=== PATIENT | male | born 1970 | race Caucasian/White ===

== ENCOUNTER 2020-09-08 08:05 | Inpatient (IN) | payer OTHER ==
[~2020-09-08] VITALS: Ht 182.9 cm; Wt 68.0 kg
[~2020-09-08 08:05] MED LIST: AUGMENTIN 875-1 EACH PO; BENZONATATE200 MG PO; CALCIUM 600 +1 EAC1 PO; CHANTIX1 MG PO; FIORICET-COD 51 EACH PO; NABUMETONE750 MG PO; NORCO 5-325 TA1 EACH PO; PLAVIX75 MG PO; POTASSIUM CHLO20 ME1 PO; ROBAXIN-750750 MG PO; SYNTHROID112 MCG PO; TOPROL XL50 MG PO; TRAMADOL HCL50 MG PO; TRIAMTERENE-HC1 EAC1 PO; VITAMIN D2000 UNIT PO; ZANAFLEX4 MG PO
[2020-09-08] MEDS ORDERED: METOPROLOL SUCC50 MG PO (08:19)
[2020-09-08] MEDS ORDERED: AMITRIPTYLINE100 MG PO (08:19)
[2020-09-08] MEDS ORDERED: CLOPIDOGREL75 MG PO (08:20)
[2020-09-08] MEDS ORDERED: SYNTHROID88 MCG PO (09:40)
[2020-09-08] MEDS ORDERED: SYNTHROID100 MCG PO (09:41)
[2020-09-08] MEDS ORDERED: AMLODIPINE BESYL5 MG PO (09:42)
--- NOTE | 2020-09-08 11:53 | NUR ---
PT HERE TO ROOM 127 FROM ER VIA GURNEY, IS AT THE BEDSIDE. PT ONLY ABLE TO ROLL FROM GURNEY TO BED DUE TO BACK PAIN. PT IS ALERT AND ORIENTED X4, COOPERATIVE. PT C/O 9/10 PAIN IN LOW BACK AND NECK. PT DENIES NAUSEA AND SOB. PT AGREABLE TO NICOTINE PATCH, PLACED ON RT SHOULDER. PT REFUSES LUNCH AT THIS TIME, TAKES A FEW SIPS OF WATER AND APPLE JUICE. PT ABLE TO USE CALL LIGHT, DENIES NEED TO VOID.
--- NOTE | 2020-09-08 12:14 | NUR ---
NOTIFIED BY LAB FOR CRITICAL VALUE, NA 112. DR. PIZARRO NOTIFIED, NO NEW ORDERS.
--- NOTE | 2020-09-08 12:38 | NUR ---
IV SITE IS INTACT, NO REDNESS OR SWELLING NOTED, PT DEINES PAIN WITH FLUSH. PT IS ALERT AND ORIENTED X4, COOPERATIVE.
--- NOTE | 2020-09-08 15:00 | NUR ---
NAPPING, NO DISTRESS NOTED. IN ROOM.
--- NOTE | 2020-09-08 16:10 | NUR ---
ASSESSMENT DONE. TALKED WITH PATIENT ABOUT REASONS WHY HE HAS LOW SODIUM. PATIENT IS CALM AT THIS TIME. COOPERATIVE,. NO S/S OF ETOH WITHDRAWAL.
--- NOTE | 2020-09-08 17:19 | NUR ---
LAB REPORTED CRITICAL VALUE OF NA 114. DR. PIZARRO NOTIFIED BY PHONE, NO NEW ORDERS AT THIS TIME.
--- NOTE | 2020-09-08 17:41 | NUR ---
SITTING UP IN BED FOER DINNER. IVF CONTINUE TO INFUSE AT 50 ML/HR.
--- NOTE | 2020-09-08 18:15 | NUR ---
C/O INCREASED PAIN, FENTANYL 50 MCG IV GIVEN. TOOK ONLY FEW BITES OF SOUP FOR DINNER.
--- NOTE | 2020-09-08 19:01 | NUR ---
MORE RESTFUL SINCE PAIN MEDICATION GIVEN. IS SITTING UP IN BED WATCHING TV. REMAINS IN ROOM. REPORT TO NEST SHIFT.
--- NOTE | 2020-09-08 19:04 | EKG ---
[facility] [address] [facility] [place], [place] [address] Signed Normal sinus rhythm Biatrial enlargement Prolonged QT Abnormal ECG No previous ECGs available Confirmed by LIZZY PIZARRO DO ([id number]) on 09/08/2020 7:04:14 PM Electronically Signed By: LIZZY PIZARRO DO 09/08/20 1904 PATIENT NAME: TYRESE PIMENTEL Electrocardiogram DATE OF : 68 PHYSICIAN: LIZZY PIZARRO DO REPORT #: [id number] REPORT IS CONFIDENTIAL AND NOT TO BE RELEASED WITHOUT AUTHORIZATION
--- NOTE | 2020-09-08 20:00 | NUR ---
PATIENT RESTING IN BED. REPORTS BEING SORE. DISCUSSED PRN TIME FRAME, PATIENT VERBALIZED UNDERSTANDING. NO NEEDS AT THIS TIME. CALL LIGHT IN REACH.
--- NOTE | 2020-09-08 20:30 | NUR ---
DISCUSSED LAB FINDINDS WITH . INCREASED RATE TO 75 ML/HR FOR 3% SALINE.
--- NOTE | 2020-09-08 20:45 | NUR ---
PATIENT PROVIDED WITH PRN OXY AND MUSCLE RELAXER FOR PAIN 01/05. PAIN IS ACROSS THE BACK AND UPPER ABD. PATIENT IS AAOX4. IV SITE WNL, INCREASED RATE TO 75 ML/HR PER ORDERS. PATIENT HAS A CONGESTED COUGH AND SOME BLOODY SPUTUM. NO SIGNS OF NOSE BLEED AT THIS TIME. PRN ZOFRAN PROVIDED FOR MILD NAUSEA. PATIENT ABLE TO EAT A JELLO AND ENCOURAGED TO DRINK MORE WATER. LUNG SOUNDS ARE COARSE THROUGHOUT. PATIENT DENIED NEED TO VOID. CALL LIGHT IN REACH.
--- NOTE | 2020-09-08 23:32 | NUR ---
PATIENT APPEARS TO BE SLEEPING SOUNDLY. VS STABLE. IV SITE WNL. CALL LIGHT IN REACH.
--- NOTE | 2020-09-09 00:57 | NUR ---
PATIENT WOKE. HAVING SOME HARSH COUGHING THAT SOUNDS CONGESTED. PATIENT REPORTS THIS NORMAL FOR HIM. ASSISTED UP TO THE BEDSIDE TO USE THE URNAL. PATIENT TOLERATED OKAY, BUT IS WEAK. PAIN 8/10. PRN OXY PROVIDED. PATIENT ASSISTED BACK INTO BED. FRESH ICE WATER PROVIDED. PATIENT REPORTS BEING COMFORTABLE. BREATHING IS MILDLY LABORED, O2 SATS GREATER THAN 95% BUT WHEEZING HEARD.
--- NOTE | 2020-09-09 03:12 | NUR ---
CONT TO C/O PAIN. GIVEN 4MG ZANAFLEX FOR MUSCLE TIGHTNESS.
--- NOTE | 2020-09-09 05:13 | NUR ---
PATIENT DESAT TO 70'S WHILE SLEEPING. BREATHING IS SHALLOW AND AUDIBLY COARSE. 2L NC PLACED ON PATIENT.
--- NOTE | 2020-09-09 06:42 | NUR ---
FLUIDS PLACED IN STAND BY AT THIS TIME
--- NOTE | 2020-09-09 07:30 | NUR ---
REPORT RECIEVED. PATIENT IS ASLEEP IN BED. NO DISTRESS NOTED.
--- NOTE | 2020-09-09 08:15 | NUR ---
IVF CHANGED TO D5W AT 100 ML/HR FOR 400 ML. ROUTINE MEDICATIONS GIVEN.
--- NOTE | 2020-09-09 08:30 | NUR ---
ASSESSMENT DONE. LUNGS ARE WITH VERY COURSE BREATH SOUNDS THROUGHOUT, DENIES SHORTNESS OF BREATH. O2 TO OFF SATS 100%. OXYCODONE 10 MG PO GIVEN FOR PAIN IN BACK AND RIBS, ROUTINE TYLENOL GIVEN. SITTING UP IN BED.
--- NOTE | 2020-09-09 09:30 | NUR ---
TOOK BREAKFAST FAIR. DENIES NAUSEA. HAS HARSH COUGH.
--- NOTE | 2020-09-09 09:50 | NUR ---
PHYS THERAPY HERE TO SEE PATIENT, SEE PT NOTE. WITH ACTIVITY HR TO 130.
--- NOTE | 2020-09-09 10:27 | NUR ---
RESTING IN BED. HR 112, DENIES DIZZINESS.
--- NOTE | 2020-09-09 12:20 | NUR ---
DR. PIZARRO HERE TO SEE PATIENT.
--- NOTE | 2020-09-09 13:30 | NUR ---
transferred to chair.
--- NOTE | 2020-09-09 14:10 | NUR ---
BACK TOP BED.
--- NOTE | 2020-09-09 14:40 | NUR ---
OXYCODONE 10 MG PO AND TYLENOL 1000 MG AND MUSCEL RELAXANT GIVEN FOR RIB PAIN, RATES 02/05.
--- NOTE | 2020-09-09 15:45 | NUR ---
MONITOR DC'D. TO BE TRANSFERRED TO MED-SURG SOON.
--- NOTE | 2020-09-09 16:00 | NUR ---
report to med-surg.
--- NOTE | 2020-09-09 16:04 | NUR ---
TO MED-SURG VIA BED.
--- NOTE | 2020-09-09 16:17 | NUR ---
PT ARRIVED FROM CCU. PT RESTING IN BED. VSS. PT DENIES NEEDS AT THIS TIME.
--- NOTE | 2020-09-09 17:43 | NUR ---
PT RESTING IN BED. ASSISTED TO ORDER DINNER. HAT PLACED IN BATHROOM AND WALKER AT BEDSIDE, DISCUSSED TO CALL TO AMBULATE TO BATHROOM FOR SAFETY.
--- NOTE | 2020-09-09 19:10 | NUR ---
REPORT RECEIVED FROM DAY SHIFT RN. PT LYING IN BED ALERT AND ORIENTED. DENIES NEEDS AT THIS TIME. WHITE BOARD UPDATED. CALL LIGHT IN REACH.
--- NOTE | 2020-09-09 20:54 | NUR ---
PT UP TO BR WITH SBA AND FWW. PT TREMULOUS. GAIT UNSTEADY AT TIMES. VOID 1000 ML CONCENTRATED URINE. BACK TO BED, CATINA WELL. ASSESSMENT COMPLETE. SCHEDULED PAIN MEDS ADMINISTERED. PT DENIES NAUSEA. PT DENIES QUESTIONS OR CONCERNS AT THIS TIME. CALL LIGHT IN REACH.
--- NOTE | 2020-09-09 23:41 | NUR ---
IN TO ROUND ON PT. PT SITTING UP IN BED WATCHING TV. REPORTS PAIN IS TOLERABLE AT THIS TIME. DENIES NEEDS. CALL LIGHT IN REACH.
--- NOTE | 2020-09-10 01:11 | NUR ---
PT RESTING IN BED WITH EYES CLOSED. HOB ELEVATED. RESPIRATIONS EVEN AND UNLABORED.
--- NOTE | 2020-09-10 03:40 | NUR ---
ROUNDING ON PT. PT EYES OPEN WHEN OPENING THE DOOR. PT REPORTS RIGHT RIB PAIN IS TOLERABLE. NO NEEDS AT THIS TIME. CALL LIGHT IN REACH.
--- NOTE | 2020-09-10 05:30 | NUR ---
IN TO DO VS AND I&O. PT IS COOPERATIVE BUT APPEARS CONFUSED AND IS MINIMALLY VERBAL. UP TO BR WITH SBA AND FWW. GAIT UNSTEADY. PT TREMULOUS BUT NOT MORE SO THAN LAST EVENING. PT UNABLE TO VOID. BACK TO BED. STATES "I FEEL LIKE I'M LOSING MY DAMN MIND". SITTING AT BEDSIDE. ABLE TO DRINK FROM CUP. MOVEMENTS JERKY. PT UNABLE TO ANSWER ORIENTATION QUESTIONS, NON-VERBAL AT THIS TIME. NOTED TO HAVE A BLANK GAZE. COURT MANAGER RN NOTIFIED. BLOOD SUGAR CHECK 112. LAB CALLED TO ROOM FOR LABS. DR. PIZARRO NOTIFIED OF MENTAL STATUS CHANGES. 0600: DR. PIZARRO TO FLOOR IN ROOM TO ASSESS. NEW ORDERS RECEIVED. PT UNABLE TO STATE WIFES NAME. UNAWARE OF SURROUNDINGS. BLANK GAZE. ABLE TO FOLLOW WITH EYES BUT NO VERBAL RESPONSE. ROTARY FURNACE TENDER EQUAL. APPROX FIVE MIN LATER PT ABLE TO FOLLOW SIMPLE COMMANDS. 0625: PT RUBBING HEAD AND EARS. PT ABLE TO RESPOND "THEY JUST STARTED GOING". DENIES HEADACHE BUT SAID HE FEELS CONFUSED AND HAS RINGING IN HIS EARS. PT ABLE TO STATE WIFES NAME AND BECAME MORE VERBALLY RESPONSIVE. PT DOES NOT SEEM TO BE AT BASELINE COMPARED TO LAST EVENING. DENIES CHEST PAIN BUT GRABS AT RIGHT SIDE. HEAD CT ORDERED. COURT MANAGER NOTIFIED IMAGING. MEN'S LEATHER DRESS BELT MAKER ONE ON ONE WITH PT. THIS RN AT NURSES STATION WITH PT IN VIEW. 0715: PT OFF FLOOR TO CT.
--- NOTE | 2020-09-10 06:30 | NUR ---
MESSAGE LEFT FOR PT TO CONTACT MEDICAL FLOOR.
--- NOTE | 2020-09-10 06:49 | NUR ---
NEW TELEPHONE ORDERS RECEIVED FROM DR. PIZARRO. VERIFIED WITH READ BACK METHOD. PT IN BED, CONTINUES TO RUB HEAD AND EARS. GRABBING RIGHT RIB AREA. DENIES CP OR SOB. IVF INFUSING ORDERED. BED ALARM FOR SAFETY. PT IN VIEW OR THIS RN AND ACCOUNTING MACHINE SERVICER.
--- NOTE | 2020-09-10 07:38 | NUR ---
this rn recieved report from sanjuanita petty. pt appears "out of it" during neuro assessment this rn completed pt not able to state what kind of building he is im, pt not able to state the date without looking at the white board to cheat for the answer. pt also able to perform all movements wnl but following directions for the nih was more literal movements- instead of pt pulling his toes up against this rns hands pt pulled his legs up to his chest. this rn will continue to monitor
--- NOTE | 2020-09-10 07:46 | NUR ---
IVF COMPLETE, SL AT THIS TIME. PT STATES HE IS COLD. WARM BLANKET PROVIDED. PT CONTINUES TO RUB EARS/HEAD AND C/O RINGING IN HIS EARS. REPORTED TO DAY SHIFT RN. BED ALARM FOR SAFETY.
--- NOTE | 2020-09-10 09:11 | NUR ---
this rn in pts room to check on pt. catalyst supervisor's darshan, alexia, and mehgan in room at this time with . pt out of bed and has phone and glasses case in his hand. this rn had a catalyst supervisor call security. this rn over rode 2mg of ativan and gave them around this time per verbal order of .
--- NOTE | 2020-09-10 10:11 | NUR ---
PATIENT IN BED RESTING WITH EYES CLOSED. VISITOR IN ROOM. SEIZURE PADS IN PLACE. VITALS CHARTED. CALL LIGHT IN REACH. BED ALARM ON. NO FURTHER NEEDS AT THIS TIME.
--- NOTE | 2020-09-10 10:15 | NUR ---
THIS RN GAVE REPORT TO FRANSISCA HEATH IN CCU WHERE PT IS TO BE TRANSFERRED TO [facility]
--- NOTE | 2020-09-10 10:30 | NUR ---
Patient arrives to unit via hospital bed, sleeping and somnolent in bed. Patient does not initially arouse to verbal stimuli but mumbles and moves with physical stimuli. Daughter in room at bedside. Assessment initiated, vital signs taken. school lunch monitor in place. This RN to remain in room to continue assessment.
--- NOTE | 2020-09-10 10:45 | NUR ---
Patient sits up in bed, mumbling and stating "I need to get out of bed." Patient has strong and equal muscle strength, pushing himself out of bed. Nursing staff in room at bedside, keeping patient in bed. Patient begins yelling "Quit quit" and swatting at staff members. printing worker supervisor called to respond, as well as security. Called Dr. Arias and orders acknowledged to administer ativan (see MAR). Security in room at bedside. Dr Arias responds to patient's bedside to evaluate. Further orders acknowledged to administer additional ativan (see MAR). Patient assisted back to bed with security assistance. After several minutes, patient begins to become less agitated and closes eyes. Patient now sleeping in bed. Patient begins coughing, suction used for sputum, which is cardona in color. *Prior to ativan administration, patient stated "I have to pee." Patient assisted to a standing position with security and nursing staff assist with urinal in place. Patient unable to void, however does have a large unmeasured incontinent void once back in bed.
--- NOTE | 2020-09-10 11:16 | NUR ---
MED REC COMPLETE
--- NOTE | 2020-09-10 11:22 | NUR ---
Patient sleeping in bed, respirations even and unlabored. Slight snoring heard. Daughter in room at bedside. HR in the 100's, SpO2 of 97% on RA. Bed alarm in place.
--- NOTE | 2020-09-10 11:30 | NUR ---
PATIENT SLEEPING SOUNDLY. WILL NOT AWAKEN HAS BEEN CONFUSED AND SEDATED TODAY. CM WILL CONTINUE TO FOLLOW WHEN ABLE.
--- NOTE | 2020-09-10 14:10 | NUR ---
THIS RN IN TO ASSESS PT AND TAKE VITALS. PT INITIALLY SLEEPING IN BED, FAMILY AT BEDSIDE. WHILE ASSESSING PT PT BECAME INCREASINGLY AGITATED AND KEPT ATTEMPTING TO GET OUT OF BED. PT WAS NO FOLLOWING COMMANDS AND 2MG ATIVAN WAS ADMINISTERED VIA IV BY KUMAR CORRIGAN. ASSESSMENT WAS THEN COMPLETE. PT BECAME AGITATED ONLY MINUTES LATER AGAIN IGNORING COMMANDS AND TRYING TO GET OUT OF BED DESPITE US REQUESTING HIM NOT TO. THIS RN ADMINISTERED ANOTHER 2MG IV ATIVAN. PT THEN CALMED DOWN AND REMAINED CALM. PT WAS INCONTINENT OF URINE, BED CHANGE DONE, PERICARE DONE, NEW ATTENDS IN PLACE. PT NOW LAYING IN BED SLEEPING, FAMILY AT BEDSIDE, NO FURTHER NEEDS REPORTED OR ASSESSED AT THIS TIME. BED IN LOWEST POSITION, BED ALARM ON, WILL CONTINUE PLAN OF CARE.
--- NOTE | 2020-09-10 15:15 | NUR ---
THIS RN IN TO CHECK ON PT. PT LAYING IN BED SLEEPING AT THIS TIME. RESPIRATIONS EVEN AND UNLABORED, PT IN NO APPARENT DISTRESS AT THIS TIME. NO FURTHER NEEDS REPORTED AT THIS TIME, WILL CONTINUE PLAN OF CARE. BED IN LOWEST POSITION, BED ALARM ON.
--- NOTE | 2020-09-10 15:45 | NUR ---
THIS RN IN TO ASSESS PT AND FIX SPO2 MONITOR FOR A BETTER READ. PT ALSO PUT ON 2L O2 AT THIS TIME DUE TO PREVIOUS READS IN THE UPPER 80%. PT INITIALLY SLEEPING BUT BECAME MORE AGITATED WHILE PUTTING NEW SPO2 PROBE ON AND ATTEMPTED TO GET OUT OF BED AGAIN AND WAS NOT LISTENING TO COMMANDS. 2MG PRN IV ATIVAN ADMINISTERED AT THIS TIME. PT NOW LAYING IN BED SLEEPING, SPO2 AT 99%, 2L O2 VIA NC AT THIS TIME. NO FURTHER NEEDS REPORTED BY FAMILY, PT IN NO APPARENT DISTRESS, BED IN LOWEST POSITION, BED ALARM ON, WILL CONTINUE PLAN OF CARE.
--- NOTE | 2020-09-10 16:10 | NUR ---
THIS RN IN TO START ANOTHER IV ON PT. PT SLEEPING IN BED AND IN NO APPARENT DISTRESS, 2L O2 NC ON PT, SPO2 AT 99%. NEW IV PLACED IN R WRIST PER PROTOCOL. IV FLUSHES WELL AND DRAWS BLOOD, LAB IN TO DRAW BLOOD AT THIS TIME, SAMPLE GIVEN FROM IV. PT REMAINS ASLEEP AT THIS TIME, BREATHING EVEN AND UNLABORED. NO FURTHER NEEDS ASSESSED AT THIS TIME, WILL CONTINUE PLAN OF CARE. BED IN LOWEST POSITION, BED ALARM ON, FAMILY IN ROOM WITH PATIENT.
--- NOTE | 2020-09-10 16:49 | NUR ---
THIS RN IN TO ASSESS PT. PT LAYING IN BED SLEEPING, RESPIRATIONS EVEN AND AT 22 PER MINUTE. PT IN NO APPARENT DISTRESS AT THIS TIME AND WAS LEFT UNDISTURBED, PT STILL ON 2L O2 NC, SPO2 AT 100%. WILL CONTINUE PLAN OF CARE. IN ROOM SLEEPING, BED IN LOWEST POSITION, BED ALARM UP, SEIZURE PADS IN PLACE.
--- NOTE | 2020-09-10 18:10 | NUR ---
DR. PIZARRO UPDATED ON PT, NEW ORDERS GIVEN TO START MAINTENANCE IVF, LR AT 100 mls/hr. THIS RN IN TO START IVF, PT ADMINISTERED 2MG OF ATIVAN PRIOR TO SUCTIONING SECRETIONS AND STARTING IVF PT. CAN GO FROM BEING ASLEEP TO GETTING OUT OF BED QUICKLY WHEN AGITATED/DISTURBED. IVF STARTED, SECRETIONS SUCTIONED, PT STILL ON 2L O2 NC, SPO2 AT 99%. NO FURTHER NEEDS ASSESSED AT THIS TIME, BED IN LOWEST POSITION, BED ALARM ON, WILL CONTINUE PLAN OF CARE.
--- NOTE | 2020-09-10 19:11 | NUR ---
THIS RN IN TO CHECK ON PT. PT SLEEPING IN BED ON 2L O2, RESPIRATIONS EVEN AND UNLABORED. PT CHANGED DUE TO URINARY INCONTINENCE, PERICARE DONE AT THIS TIME, NEW ATTENDS IN PLACE. AFTER CHANGE PT BECAME MORE AWAKE, RESTLESS, TRIED TO GET OUT OF BED. PT WAS NOT FOLLOWING DIRECTIONS AND KEPT TRYING TO GET OUT OF BED, 2MG PRN IV ATIVAN WAS ADMINISTERED. PT WAS RESTLESS FOR A PERIOD BUT EVENTUALLY BECAME CALM AND WENT BACK TO SLEEP. NO FURTHER NEEDS ASSESSED AT THIS TIME, PT NOW SLEEPING IN BED, IV LR INFUSING AT ORDERED RATE, 2L O2 NC IN PLACE SPO2 AT 99%, BED IN LOWEST POSITION, BED ALARM ON, WILL CONTINUE PLAN OF CARE.
--- NOTE | 2020-09-10 19:47 | NUR ---
REPORT RECEIVED FROM AFSHIN HEATH. PT CURRENTLY AWAKE, TRYING TO CLIMB OUT OF BED SETTING OFF BED ALARM. HELPED HIM BACK TO BED AND HE IS STILL MOVING LEGS OUT OF BED WELL PLAYING WITH IV LINE AND MONITOR CORDS. WILL GIVE PRN ATIVAN, BED ALARM ON.
--- NOTE | 2020-09-10 20:16 | NUR ---
PT CONSTANTLY ATTEMPTING TO GET OUT OF BED, STATES HE NEEDS TO HAVE BOWEL MOVEMENT, ATTEMPTED TO HELP HIM UP TO BSC BUT PT REFUSING TO USE BSC WANTS TO WALK INTO BR, AT THIS TIME PT IS NOT ABLE TO STAND UP OR WALK STEADILY, EXPLAINED TO PT NOT SAFE AT THIS TIME BUT PT CONT TO REFUSE BSC. AFTER APPROX 30 MINUTES OF 3 STAFF AT BEDSIDE PT EVENTUALLY LIES BACK TO BED, ATTENDS IN PLACE AND NO BOWEL MOVEMENT BUT ATTENDS IN PLACE. 2MG IV ATIVAN GIVEN AND BED ALARM ON. STAFF REMAIN IN ROOM WITH PT.
--- NOTE | 2020-09-10 20:37 | NUR ---
PT AGAIN TRYING TO GET OUT OF BED, NO REDIRECTABLE. 2MG IV ATIVAN GIVEN.
--- NOTE | 2020-09-10 21:02 | NUR ---
IVF SWITCHED TO 1/2NS PER DR PIZARRO ORDER. PT CURRENTLY RESTING WITH EYES CLOSED, RESTING HR DOWN FROM 105 TO 95. STAFF AT BEDSIDE.
--- NOTE | 2020-09-10 23:06 | NUR ---
PT BECAME RESTLESS AND AGITATED AGAIN, CLIMBING OUT OF BED, STAFF ASSITED PT TO VOID 20ML INTO URINAL, ALSO INC INTO URINAL. PT INSISTING ON BOWEL MOVEMENT, ASSISTED ONTO BSC WITH 2PA, PT NOT FOLLOWING COMMANDS, SWINGING AT STAFF, AND TRYING TO WALK OFF. FINALLY GOT HIM ONTO COMMODE, WHERE HE SAT FOR APPROX 10 MINUTES, HAD SOME GAS BUT NO STOOL. TRIED TO GET UP AND WALK OFF, PLACED BACK IN BED BY STAFF. 2 MG IV ATIVAN INITIALLY GIVEN BUT PT REMAINED NONCOMPLIANT AND AGITATED, ADDITIONAL 2MG ATIVAN IV GIVEN.
--- NOTE | 2020-09-10 23:52 | NUR ---
PT CONTINUES TO TRY TO CLIMB OUT OF BED, REQUIRING 2 STAFF TO KEEP HIM IN BED, TALKING INCOHERENTLY AND CONFUSED. 4MG IV ATIVAN GIVEN.
--- NOTE | 2020-09-11 | NUR ---
PT HAS CONTINUED TO INSIST ON GOING TO THE BATHROOM, DESPITE INC EPISODE AND USING URINAL. BLADDER SCAN DONE AND SHOWS 800ML. STRAIGHT CATH DONE WITH IMMEDIATE RETURN OF 700ML YELLOW URINE.
--- NOTE | 2020-09-11 00:20 | NUR ---
PT CONTINUES TO TRY TO CLIMB OUT OF BED, CONFUSED AND AGITATED. 4MG IV ATIVAN GIVEN.
--- NOTE | 2020-09-11 00:30 | NUR ---
PT IS NOW RESTING WITH EYES CLOSED, RESP EVEN AND UNLABORED. RN REMAINS AT BEDSIDE.
--- NOTE | 2020-09-11 01:00 | NUR ---
PT SUDDENLY AWAKENS AND TRIES TO CLIMB OUT OF BED, STATING "I GOTTA PEE NOW". URINAL BROUGHT TO PT BUT PT ALREADY WAS INC MODERATE AMOUNT OF URINE. AFTER THIS PT REMAINED AGITATED AND CLIMBING OUT OF BED. 4MG IV ATIVAN GIVEN, 3 STAFF AT BEDSIDE.
--- NOTE | 2020-09-11 01:12 | NUR ---
CALL TO DR PIZARRO TO DISCUSS PTS CONTINUING AGITATION, ORDERS GIVEN FOR HALDOL AND INCREASING ATIVAN DOSAGE.
--- NOTE | 2020-09-11 01:23 | NUR ---
PT STILL TRYING TO CLIMB OUT OF BED AND NOT DIRECTABLE. 3MG IV HALDOL GIVEN, STAFF REMAIN AT BEDSIDE.
--- NOTE | 2020-09-11 01:45 | NUR ---
PT HAS SETTLED DOWN SINCE HALDOL GIVEN, NOW APPEARS RESTFUL, RESP EVEN AND UNLABORED, EYES CLOSED. HR 100.
--- NOTE | 2020-09-11 04:11 | NUR ---
PT RESTING WITH EYES CLOSED, HAS BEEN QUIET AND CALM THE LAST COUPLE OF HOURS. STAFF AT BEDSIDE. RESTING HR 105.
--- NOTE | 2020-09-11 06:46 | NUR ---
PT CONTINUES TO SLEEP WITH OCCASIONAL PRODUCTIVE SOUNDING COUGH. HAS NOT VOIDED SINCE STRAIGHT CATH DONE. BLADDER SCAN DONE THIS TIME SHOWS 366ML. PT SLEEPS THROUGH THIS ACTIVITY BUT DOES START TO STIR SOME. RN REMAINS AT BEDSIDE TO MONITOR PT.
--- NOTE | 2020-09-11 07:45 | NUR ---
MORNING ASSESSMENT COMPLETE. PO MEDICATIONS HELD D/T PT'S LETHARGY. AUDIBLE SECRETIONS HEARD IN AIRWAY. SUCTION PERFOMED. SPUTUM THICK WHITE/YELLOW.
--- NOTE | 2020-09-11 09:13 | NUR ---
BBS DIMINISHED AND COURSE. PLACED ON NIMV FOR RESP FAILURE PER DR. PIZARRO. CATINA WELL WOB OK AND PT PROTECTING OWN AIRWAY AT THIS TIME.
--- NOTE | 2020-09-11 09:16 | NUR ---
v/s and I&Os done, pt. put on BIPAP no other needs at this time.
--- NOTE | 2020-09-11 09:21 | NUR ---
BLADDER SCAN SHOWS VOL OF 421. DR. PIZARRO NOTIFIED. ORDERS FOR BEAR CATHETER.
--- NOTE | 2020-09-11 09:45 | NUR ---
PT NOW ON BPAP D/T INCREASED RR AND WOB. SETTINGS 17/4 @ 40% FIO2. PRIOR TO PT WAS ON 2 L NC AND ETCO2 SHOWED PT TO BE RETAINING CO2. VBG ORDERED BY DR PIZARRO, SLIGHTLY ABNORMAL ALSO SHOWED CO2 RETENTION. PT DOES RESPOND TO VERBAL STIMULI AND IS ORIENTED X3. SLIGHTLY DROWSY, QUICK TO FALL BACK ASLEEP. ALDO UPDATED BY PHONE. CALL LIGHT IN REACH
--- NOTE | 2020-09-11 10:30 | NUR ---
BEAR CATHETER INSERTED AND URINE RETURN OF 350 MLS YELLOW CONCENTRATED URINE. LITTLE CARE PERFORMED BEFORE AND AFTER. STERILE TECHNIQUE UPON INSERTION OF CATHETER. PT TOLERATED WELL.
--- NOTE | 2020-09-11 11:00 | NUR ---
bed alarm went off, pt attempting to get out of bed. RN and COACH PROFESSIONAL ATHLETES went into room. pt was saying he had to urinate but has a joseph in. RN and COACH PROFESSIONAL ATHLETES helped pt to bedside commode to calm him, then helped right back into bed. Pt. arrived. no other needs at this time. call light with in reach
--- NOTE | 2020-09-11 12:15 | NUR ---
PT AWAKE AND ORIENTED TO SELF, DATE AND PLACE. DISORIENTED TO EVENTS. BIPAP REMOVED TO SUCTION AND OFFER SMALL SIPS OF WATER. ORAL CARE DONE. ASSESSMENT COMPLETED. VSS. LUNG SOUNDS ARE COARSE THROUGHOUT. WOB AND RR HAVE IMPROVED SINCE PLACEMENT OF BIPAP (SETTINGS 17/4 @ 40% FIO2) SATING 99% SECRETIONS ARE OF MODERATE AMOUNT, THICK AND WHITE. PT CONTINUES TO GET BREATHING TX QID. ALDO REMAINS IN ROOM. CALL LIGHT IN REACH.
--- NOTE | 2020-09-11 14:30 | NUR ---
PT REPOSITIONED TO RIGHT SIDE WITH PILLOWS. ENCOURAGING COUGHING TO LOOSEN SECRETIONS, BIPAP REMOVED TO SUCTION, SECRETIONS THICK AND WHITE. PT ABLE TO TOLERATE SMALL SIPS OF WATER. BEAR EMPTIED OF 100 MLS CONCENTRATED YELLOW URINE. ALDO REMAINS IN ROOM. CALL LIGHT IN REACH.
--- NOTE | 2020-09-11 14:30 | NUR ---
Attempted to see Levi, but he is on cont. Bipap. Wanted to speak with , but she was sleeping soundly. Will complete CM assessment tomorrow.
--- NOTE | 2020-09-11 15:00 | NUR ---
DR. PIZARRO CALLED AND NOTIFIED OF AXILLARY TEMP OF 100.8 AND CHEST X-RAY RESULTS OF POSSIBLE RLL PNEUMONIA. NO NEW ORDERS AT THIS TIME.
--- NOTE | 2020-09-11 16:43 | NUR ---
LAB IN TO DRAW BLOOD CULTURES. PO TYLENOL GIVEN FOR TEMP OF 100.8 AND PT TOLERATED WELL. DRANK MODERATE AMOUNT OF WATER. ASSESSMENT COMPLETE. LUNG SOUNDS REMAIN COARSE BLL. VSS, HR 105-115 AT REST. PT DISORIENTED TO PLACE AND TIME. IS ORIENTED TO SELF. RR HAS IMPROVED TO 26, BREATHING IS DEEPER. IV ROCEPHIN INFUSING. IVF NS INCREASED TO 100 MLS/HR. CALL LIGHT WITHIN REACH.
--- NOTE | 2020-09-11 20:58 | NUR ---
PT IS AWAKE ALERT, OFF BIPAP FOR NOW. IS DISORIENTED TO DATE TIME PLACE AND EVENTS BUT IS COOPERATIVE. VERY SLIGHT TREMOR NOTED. HAS VERY LOOSE HARSH PROCDUCTIVE COUGH. BREATH TONES ARE VERY COURSE THROUGHOUT, WITH SOME WHEEZES. ABLE TO TAKE PILLS WITHOUT PROBLEM. DR PIZARRO GIVEN UPDATE AND AM MEDS THAT WERE HELD DUE TO SOMNOLENSE GIVEN NOW.
--- NOTE | 2020-09-11 21:26 | NUR ---
PT HAD CALLED WITH HIS CELL PHONE. HIS THEN CALLED NURSES AND UPDATE GIVEN.
--- NOTE | 2020-09-11 22:27 | NUR ---
RESTING IN BED, WATCHING TIV AND DOZING. LABS DRAWN. HAS VERY POOR SHORT TERM MEMORY, REMINDED THAT HE WOULD BE IN THE HOSPITAL A FEW MORE DAYS.
--- NOTE | 2020-09-11 22:55 | NUR ---
DR PIZARRO NOTIFIED OF NA OF 125 AND OF PT'S POOR URINE OUTPUT. WILL CHANGE IV RATE TO 125ML/HR.
--- NOTE | 2020-09-11 23:42 | NUR ---
PT NOTED TO BE SLEEPING. BIPAP PLACED.
--- NOTE | 2020-09-12 02:10 | NUR ---
SLEEPING WITH BIPAP IN PLACE. HR AND RESP RATE IMPROVED WITH BIPAP.HR 88 RR 15.
--- NOTE | 2020-09-12 03:33 | NUR ---
CONT TO SLEEP SOUNDLY WITH BIPAP IN PLACE.
--- NOTE | 2020-09-12 05:30 | NUR ---
IN TO ASSESS PT. AWAKENS EASILY, BIAPAP OFF FOR NOW. [address] HAS LOSE COUGH. TAKING PO WATER WELL. HAS SLEPT WELL URINE OUTPUT CONT TO BE LOW.
--- NOTE | 2020-09-12 07:15 | NUR ---
Report received, orders acknowledged. Patient laying awake in bed with daughter at bedside.
--- NOTE | 2020-09-12 08:00 | NUR ---
RT in room administering breathing tx
--- NOTE | 2020-09-12 08:45 | NUR ---
pt. daughter came to visit. v/s and I&Os done, pt. washed face and head. no other needs at this time. call light with in reach
--- NOTE | 2020-09-12 09:00 | NUR ---
Patient sitting up in bed watching tv. Assessment complete. Lung sounds are coarse and wheezy throughout. Patient coughing up thick brown sputum. Patient up to chair with 1PA, pivot to chair. Patient wobbly on feet. AM medications given. Patient able to swallow water and pills without coughing or choking. Patient reports pain of 4/10 in low back, lidocaine patch in place. Denies further needs, call light within reach.
--- NOTE | 2020-09-12 10:15 | NUR ---
Clear liquid tray delivered. Patient able to tolerate meal without pain or nausea. Plan to advance diet as day continues. Patient denies further needs, call light within reach.
--- NOTE | 2020-09-12 11:15 | NUR ---
Patient fell in room after getting up out of chair. No chair alarm was in place. Patient reports "I hit my bottom and then my head hit the wood panel of the cabinet." Patient denies pain or headache. Patient assisted to BSC with multiple RNs, has a large BM. Dr. Arias in room to assess patient. Patient refuses head CT and imaging of hip. Patient oriented and able to answer questions regarding location, event, self, and date. Will continue to monitor patient closely.
--- NOTE | 2020-09-12 11:44 | NUR ---
pt. had a large bowel movement in bedside commode.
--- NOTE | 2020-09-12 12:29 | NUR ---
Spoke with Levi and he states he lives in [facility] with his and daughter. He has a son here in town who will also help. Pt lives in 1 story house without steps no issues getting in and out of house. 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 He does not use any DME. Denies financial issues. States he drinks around 12 Beers per day, offered Peer to Peer support and he states he is not interested in quitting at this time. He does feel he needs to cut back. Plans on dc to home when medically cleared and denies any needs for discharge.
--- NOTE | 2020-09-12 13:13 | NUR ---
Patient sitting up in bed watching tv, eating a sandwich. Denies pain or nausea. Denies needs at this time, call light within reach.
--- NOTE | 2020-09-12 13:25 | NUR ---
RT in room performing breathing tx
--- NOTE | 2020-09-12 15:09 | NUR ---
Patient reports pain of 6/10 in bilateral ribs, prn pain medication given
--- NOTE | 2020-09-12 15:39 | NUR ---
PT in room working with patient, HR up to the 130's during activity. Patient currently on BSC for bowel movement. This RN in room for ambulation with physical therapist.
--- NOTE | 2020-09-12 17:28 | NUR ---
Patient sitting up in bed watching tv and visiting with daughter. Reports pain is improved from earlier assessment, now a 5/10, which is tolerable. Patient requests an abdominal binder to assist with taking larger breaths and to work with the IS more, which is accommodated. IV abx hung and infusing. Patient denies further needs, call light within reach.
--- NOTE | 2020-09-12 19:01 | NUR ---
Lab in room for blood draw
--- NOTE | 2020-09-12 20:11 | NUR ---
DISCUSSED PATIENT'S LABS WITH . FLUIDS ORDERED TO CHANGE, SEE MAR.
--- NOTE | 2020-09-12 20:30 | NUR ---
PATIENT AWAKE IN BED WATCHING TV. PATIENT IS ORIENTED X4 AND CALM. REPORTS PAIN 6/10 IN RIBS AND BACK. PRN OXY AND MUSCLE RELAXER PROVIDED WITH SCHEDULED TYLNEOL. PATIENT HAS BEEN COUGHING UP THICK VANG PHLEM, ROBITUSSIN PROVIDED. TOLERATING ROOM AIR. LUNGS ARE COARSE THROUGHOUT. WILLING TO SLEEP WITH BIPAP TONIGHT. VS STABLE. IV FLUIDS SWITCHED TO NS+20KCL AT 75 ML/HR. IV SITE WNL. ABD BINDER IN PLACE, PATIENT REPORTS SOME RELIEF WITH THIS. PATIENT ATE 100% OF HIS DINNER AND DENIES NAUSEA. NO OTHER NEEDS AT THIS TIME. CALL LIGHT IN REACH AND BED ALARM ON.
--- NOTE | 2020-09-12 22:40 | NUR ---
PATIENT'S HR CONTINUES TO BE ELEVATED. CIWA 8-9. PATIENT UNABLE TO TOLERATE BIPAP. 2MG PO ATIVAN PROVIDED. PAIN IMPORVED TO 5/10. GOOD URINE OUTPUT. PATIENT REPORTS BEING COMFORTABLE IN BED.
--- NOTE | 2020-09-13 00:15 | NUR ---
PATIENT HAS BEEN SLEEPING SOUNDLY. WOKE EASILY WHEN RN ENTERED ROOM. PATIENT REPORTS FEELING MORE AT EASE AND CALM. REPORTS GOOD PAIN CONTROL, UNCOMFORTABLE IN THE BED MOSTLY DUE TO PRESSURE ON HIS BUTTOCKS. ENCOURAGED PATIENT TO REPOSITION TOLERATED TO REDUCE RISK FOR SKIN BREAK DOWN. IV FLUIDS PER ORDER, SITE WNL. URINE OUTPUT SLOWED DOWN SOME, 75 MLS FOR 3 HOURS. LUNGS ARE CLEAR AND DIM. VS STABLE. PATIENT DENIED NEEDS AT THIS TIME.
--- NOTE | 2020-09-13 02:00 | NUR ---
PATIENT SLEEPING SOUNDLY. TOLERATING ROOM AIR. HR 90'S. RR 17.
--- NOTE | 2020-09-13 05:15 | NUR ---
LAB IN FOR MORNING DRAW. PATIENT CIWA 3. VS STABLE. IV FLUIDS PER ORDER, SITE WNL. RIGHT WRIST IV IS PAINFUL TO FLUSH AND LEAKING, DC'D WNL. BEAR EMPTIED. FRESH ICE WATER PROVIDED. PATIENT HAS ORDERED BREAKFAST. DENIES FURTHER NEEDS AT THIS TIME. CALL LIGHT IN REACH. BED ALARM ACTIVE.
--- NOTE | 2020-09-13 07:35 | NUR ---
PT SLEEPING SOUNDLY AT THIS TIME, SNORING SOFTLY, APPEARS COMFORTABLE.
--- NOTE | 2020-09-13 08:13 | NUR ---
PT STATES HE ONLY USED BIPAP FOR LESS THAN 30MIN AND DOES NOT TOLERATE WAS ABLE TO SLEEP WHOLE NIGHT WITHOUT OXYGEN CURRNET SATS 96% ON RA, BIPAP REMOVED FROM ROOM
--- NOTE | 2020-09-13 08:30 | NUR ---
PT IV SITE IS INTACT, NO REDNESS OR SWELLING NOTED, FLUIDS AND FLUSHED INFUSE EASILY, PT DENIES PAIN AT THE SITE. PT IS ALERT AND ORIENTED X4, SITTING UP IN BED EATING BREAKFAST.
--- NOTE | 2020-09-13 09:46 | NUR ---
PT UP TO THE BATHROOM WITH OCCUPATIONAL THERAPY, ALL LINENS CHANGED ON THE BED. PT REQUESTS TO SIT UP IN THE CHAIR AFTER USING THE BATHROOM. PT WALKS IN ROOM USING WALKER. REMAINS ALERT AND ORIENTED X4, COOPERATIVE.
--- NOTE | 2020-09-13 11:00 | NUR ---
ADDITIONAL LIDOCANE PATCHES APPLILED TO BILAT RIBS. PT C/O 6/10 BACK AND RIB PAIN, ADDITIONAL 5 MG PO OXY GIVEN. PT REMAINS ALERT AND ORIENTED X4, VITALS ARE WNL.
--- NOTE | 2020-09-13 11:35 | NUR ---
PT AMBULATING IN THE PERSON WITH PHYSICAL THERAPY. PT USING HIS WALKER FOR ONE LAP IN THE PERSON, THEN A HALF LAP WITH NO WALKER ONLY STANDBY ASSIST. PT CATINA ACTIVITY WELL, HOWEVER STATES THAT HE FEELS MORE COMFORTABLE USING THE WALKER.
--- NOTE | 2020-09-13 11:50 | NUR ---
PT'S IS NOW AT THE BEDSIDE.
--- NOTE | 2020-09-13 12:20 | NUR ---
Spoke with Levi and notified I have an RX for a walker. I need to know which DME company he would like to use. He asks I wait as she thinks his is borrowing one.
--- NOTE | 2020-09-13 12:30 | NUR ---
PATIENT ASSESSMENT pt assessment complete, VSS, pt alert and oriented x3. pt denies pain and nausea at this time. pt sitting upright in chair, watching TV and conversing coherently with in room. pt CIWA score of 1 at this time, only some mild anxiety noted. pts lungs sound coarse but somewhat dim in the bases and primarily the left side. pt reports coughing up some "gunk". pt denies further needs at this time. pt in chair, lunch tray ready, sitting up, table and call light within reach.
--- NOTE | 2020-09-13 13:28 | NUR ---
PT REPORTS 6/10 BILAT RIB PAIN AFTER ACTIVITY AND SITTING UP IN CHAIR, 1 TAB OXYCODONE GIVEN. PT ABLE TO EAT 100% OF LUNCH WELL.
--- NOTE | 2020-09-13 14:00 | NUR ---
ROUNDING pt in room, sitting up in chair, watching TV. pt denies needs at this time. table and call light within reach.
--- NOTE | 2020-09-13 14:00 | NUR ---
Spoke with and she denies need for walker. Gave her a sheet for [employer] lending closet and let her know they loan for 3 months, free of charge.
--- NOTE | 2020-09-13 15:30 | NUR ---
MED PASS pt feeling unwell, and reports headache and anxiety at this time. pt was anticipating going home and now knows he won't be able to today, and is very disappointed. pt CIWA score of 8 at this time, PRN ativan given per orders. pt able to take med without difficulty. table and call light within reach, partner at bedside.
--- NOTE | 2020-09-13 16:22 | NUR ---
PT REPORTS LEFT EYE IS IRRITATED AND HIS VISION FEELS BLURRY IN THAT EYE. PT STILL ABLE TO READ, DENIES ANY DIZZINESS AND LOSS OF SIGHT. PT STATES "I HAVE BEEN RUBBING MY EYE BECAUSE IT FEELS IRRITATED". BILAT EYES APPEAR CLEAR, NO REDNESS NOTED, NO DISCHARGE. NIO MEDICATION OF LUBRICATING EYE DROPS ORDERED.
--- NOTE | 2020-09-13 17:17 | NUR ---
MED PASS pts IV ABX due and given at this time. pt reports feeling pain in his ribs still at this time. pt denies nausea and needs at this time. table and call light within reach.
--- NOTE | 2020-09-13 18:11 | NUR ---
ROUNDING in pt room for call light. pt requested a straw, and was given one. pt denies further needs at this time. table and call light within reach.
--- NOTE | 2020-09-13 20:06 | NUR ---
PATIENT RESTING IN BED. REPORTS FEELING LESS ANXIOUS NOW THAT HE KNOWS HE CAN STAY IN CCU TONIGHT. REPORTS GOOD PAIN CONTROL AT THIS TIME. WOULD PAIN PRN PAIN MEDS AND COUGH SYRUP BEFORE BED. PATIENT IS AAOX4. NO NEEDS AT THIS TIME.
--- NOTE | 2020-09-13 21:29 | NUR ---
PATIENT PROVIDED WITH SCHUEDULED TYLNEOL AND PRN OXY FOR PAIN 01/05. PATIENT HAS MAURICIO COUGHING MORE FROM THE NEB TREATMENT AND IS MORE PAINFUL. LIDODERM PATCHES REMOVED X3. PRN ATIVAN 1 MG PO PROVIDED FOR MILD ANXIETY AND HEADACHE. PATIENT REPORTS FEELING BETTER AFTER DOSE EARLIER TODAY. IV SL, WNL. LUNGS ARE COARSE. PRODUCTIVE COUGH, ROBITUSSIN PROVIDED. FRESH ICE WATER PROVIDED. PATIENT AGREES TO CALL IF HE NEEDS TO VOID. CALL LIGHT IN REACH.
--- NOTE | 2020-09-13 23:35 | NUR ---
PATIENT UP TO THE BATHROOM. OUT OF BED AND WALKED INDEPENDENTLY WITH FWW. PATIENT APPEARS STEADY ON HIS FEET. VOIDED 750 MLS. PATIENT RETURNED TO BED. REPORTS GOOD PAIN CONTROL AT THIS TIME. NO ANXIETY. CALL LIGHT IN REACH.
--- NOTE | 2020-09-14 02:30 | NUR ---
PATIENT APPEARS TO BE SLEEPING SOUNDLY. RR 16. CALL LIGHT IN REACH.
--- NOTE | 2020-09-14 05:00 | NUR ---
LAB IN FOR MORNING DRAW. PATIENT AAOX4. CALM. REPORTS GOOD PAIN CONTROL AT THIS TIME. DENIES NEED TO VOID. VS STABLE. LUNG SOUNDS ARE CLEAR. PATIENT CONTINUES TO HAVE HARSH COUGH. DENIES ANY NEEDS AT THIS TIME. CALL LIGHT IN REACH.
--- NOTE | 2020-09-14 07:05 | NUR ---
patient up to the bathroom. reports pain 8/10, prn oxy provided. patient steady on his feet. using fww correctly. patient returned to bed. fresh ice water provided.
--- NOTE | 2020-09-14 07:55 | NUR ---
PT IS AWAKE AND ALERT X4, SITTING UP IN BED WATCHING TV. BREAKFAST ORDER OBTAINED. KAT FROM [facility] THERAPY IN THE ROOM TO ASSESS AND GIVE A NEB TREATMENT.
--- NOTE | 2020-09-14 09:05 | NUR ---
PT REMAINS ALERT AND ORIENTED X4. BREAKFAST AND MORNING MEDS BROUGHT INTO PT'S ROOM. PT DENIES NAUSEA AND SOB, REPORTS 7/10 BILAT RIB PAIN, 5 MG PO OXYCODONE GIVEN. DISCUSSED PLAN OF CARE FOR THE DAY, ALL PT QUESTIONS ANSWERED. PT REMANIS ON ROOM AIR.
--- NOTE | 2020-09-14 09:25 | NUR ---
CALLED PT'S ALDO TO UP DATE ON PLAN TO DC PT TO HOME TODAY, ALL QUESTIONS ANSWERED.
--- NOTE | 2020-09-14 09:35 | NUR ---
PT IV SITE IS INTACT, NO REDENSS OR SWELLING NOTED, FLUIDS AND FLUSHES INFUSE EASILY. PT ABLE TO FINISH 100% OF BREAKFAST. VITALS ARE ALL WNL. PT REMAINS ALERT AND ORIENTED X4, COOPERATIVE.
--- NOTE | 2020-09-14 10:45 | NUR ---
Spoke with Levi and he plans on dc today. States is getting shower chair and walker set up at home. Pt denies other needs. Rn will make FU appt with pcp prior to dc.
--- NOTE | 2020-09-14 11:01 | NUR ---
PT IS GETTING DRESSED IN PREPARATION TO BE DISCHARGED HOME.
--- NOTE | 2020-09-14 11:18 | NUR ---
PT IS FULLY DRESSED AND SITTING UP IN BED, PT REPORTS "I'M READY TO GO HOME"
--- NOTE | 2020-09-14 12:10 | NUR ---
AT THE BEDSIDE DISCUSSING DC PLAN WITH PT.
[2020-09-14] MEDS ORDERED: LEVOFLOXACIN750 MG PO (12:26)
--- NOTE | 2020-09-14 12:35 | NUR ---
PT GIVEN ONE TAB OF OXYCODONE FOR PAIN MANAGEMENT WITH ANTICIPATED MOVEMENT DURING RIDE HOME AND AMBULATION.
[2020-09-14] MEDS ORDERED: NICOTINE PATCH1 EACH TD (12:39)
--- NOTE | 2020-09-14 12:55 | NUR ---
PT HAS LEFT THE FLOOR WITH RN VIA WHEEL CHAIR. ALL DC INSTRUCTIONS GIVEN. ALL PERSONAL BELONGINGS RETURNED.
== END 2020-09-14 12:55 | disposition home or self-care (01) | DRG 896 ==
LOC: ED 08:05 → CCU 10:49 → MS 09-09 16:16 → CCU 09-10 10:28
PROVIDERS: ADMIT Student in an Organized Health Care Education/Training Program; ATTEND Student in an Organized Health Care Education/Training Program
DX: F10.231 Alcohol dependence with withdrawal delirium (principal); G93.41 Metabolic encephalopathy; J96.01 Acute respiratory failure with hypoxia; J96.02 Acute respiratory failure with hypercapnia; J15.1 Pneumonia due to Pseudomonas; J15.20 Pneumonia due to staphylococcus, unspecified; E87.1 Hypo-osmolality and hyponatremia; R56.9 Unspecified convulsions; Z20.822 Contact with and (suspected) exposure to COVID-19; I10 Essential (primary) hypertension; M54.2 Cervicalgia; F17.200 Nicotine dependence, unspecified, uncomplicated; G89.4 Chronic pain syndrome; F39 Unspecified mood [affective] disorder; R07.81 Pleurodynia; R04.0 Epistaxis; T39.395A Adverse effect of other nonsteroidal anti-inflammatory drugs [NSAID], initial encounter; D53.9 Nutritional anemia, unspecified; R33.9 Retention of urine, unspecified; M54.9 Dorsalgia, unspecified; E87.6 Hypokalemia; E89.0 Postprocedural hypothyroidism; Z79.899 Other long term (current) drug therapy; Z79.02 Long term (current) use of antithrombotics/antiplatelets
CPT/HCPCS: 36415; 70450; 71045; 80048; 80053; 81001; 82607; 82728; 82746; 82803; 83540; 83735; 84100; 84295; 84300; 84439; 84443; 84466; 84484; 85025; 86850; 86900; 86901; 93005; 93010; 94640; 94660; 94760; 97110; 97116; 97162; 97166; 97535; A9270; C9803; J0456; J0696; J1630; J1650; J1953; J2060; J2405; J3010; J3480; J7030; J7060; J7070; J7121; J7131; U0003

== ENCOUNTER 2020-09-14 19:41 | Observation (INO) | payer OTHER ==
[~2020-09-14] VITALS: Ht 182.9 cm; Wt 70.7 kg
[~2020-09-14 19:41] MED LIST changes: +AMITRIPTYLINE100 MG PO; +AMLODIPINE BESYL5 MG PO; +CLOPIDOGREL75 MG PO; +LEVOFLOXACIN750 MG PO; +METOPROLOL SUCC50 MG PO; +NICOTINE PATCH1 EACH TD; +SYNTHROID100 MCG PO; +SYNTHROID88 MCG PO
--- OUTSIDE RECORDS SUMMARY | 2020-09-14 19:44 | XMS ---
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 [facility] has no Care Guidelines for this patient. [facility] VISIT COUNT (12 MO.) [address] [facility] TOTAL 2 NOTE: Visits indicate total known visits. ED/C VISIT TRACKING (12 MO.) 09/14/2020 19:[address] [facility] [place] TYPE: Emergency COMPLAINT: - ALOC 09/08/2020 08:06 [facility] [place] TYPE: Emergency COMPLAINT: - HEADACHE INPATIENT VISIT TRACKING (12 MO.) 09/08/2020 10:49 [facility] [place] TYPE: Critical Care COMPLAINT: - HYPONATREMIA [email or web address]
--- NOTE | 2020-09-14 21:55 | NUR ---
TELEPHONE REPORT RECEIVED FROM ED RN CELESTE. ALL QUESTIONS ANSWERED. AWAITING pt's ARRIVAL.
--- NOTE | 2020-09-14 22:05 | NUR ---
PT TO THE FLOOR VIA ED STRECTHER, PT SELF TRANSFER TO [facility] BED, VITALS DONE, PT DECLINED FRESH WATER AT THIS TIME, NO FURTHER NEEDS
--- NOTE | 2020-09-14 22:10 | NUR ---
PT ARRIVED TO THE FLOOR VIA ED STRETCHER. pt SCOOTED SELF TO MED-SURG BED. pt COMPLIANT WITH CARE, BUT REPEATS SELF WITH VERBAL WISHES TO GO HOME SUCH "NO REALLY, YOU'RE GONNA MAKE ME STAY HERE? ALL I HAD WAS A PANIC ATTACK". pt REPORTS NEED TO HAVE BM AND WISHES TO GO HOME AND USE HOME BATHROOM. pt REQUIRES REPETITVE EDUCATION AND THERAPEUTIC COMMUNICATION REGARDING POC. SECURITY IN ROOM AND BED ALARM ON FOR SAFETY. SCHEDULED MEDS GIVEN, SEE EMAR. ASSESSMENT COMPLETE, pt DENIES PAIN AND NAUSEA. APPEARS A/O, WILL CONTINUE TO MONITOR.
--- NOTE | 2020-09-14 23:08 | NUR ---
PT UP TO VOID, BACK TO SITTING AT EDGE OF BED, INSISTING HE WANTS TO GO HOME, RN IN TO ASST PT
--- NOTE | 2020-09-14 23:20 | NUR ---
pt CALLED VERBALIZING NEED TO GO TO THE BATHRROM FOR BM, pt STATES, "I'LL HAVE IT RIGHT HERE IN BED". pt UP, STEADY ON FEET, SBA. INSTRUCTED TO USE CALL LIGHT WHEN READY, pt VERBALIZES UNDERSTANDING. SKI GUIDE KRISHNA IN ROOM WITH pt TO ENSURE SAFETY.
--- NOTE | 2020-09-14 23:31 | NUR ---
SCHEDULED IV ABX INFUSING PER MD ORDERS, SITE WNL AND FLUSHES EASILY. CALL MADE TO PRESS WASHER REGARDING MAINTENANCE FLUIDS, SEE EMAR. pt CONTINUES TO VERBALIZE WANTING TO GO HOME AND WANTING COCOA MILLING MACHINE OPERATOR TO CALL DOCTOR, THIS RN DISCUSSED IN DEPTH POC AND BENEFITS TO STAY PER MD ORDERS. pt STATES, "I CAN'T STAY HERE TONIGHT, I WANNA GO HOME, I MISS MY DOG, I MISS MY BED". THERAPEUTIC COMMUNICATION PROVIDED, PRN XANAX PROVIDED D/T INCREASED AGITATION AND THREATS TO GO HOME. WILL CONTINUE TO MONITOR, CALL LIGHT IN REACH AND BED ALARM ON FOR SAFETY. pt IN VIEW OF RN STATION.
--- NOTE | 2020-09-14 23:49 | NUR ---
CALL LIGHT ANSWERED, pt VERBALIZED DESIRE TO GO HOME. DISCUSSED WITH pT AGAIN POC AND ENCOURAGED pt TO STAY. pt STATES, "SO REALLY, MY FAMILY WENT HOME?" DISCUSSED WITH pt THAT FAMILY IS AWARE pt IS STAYING THE NIGHT PER MD ORDERS. pt APPEARS LESS ANXIOUS IN NATURE, pt REPORTS ANXIETY HAS IMPROVED. WILL MONITOR. TV REMOTE PROVIDED TO pt, NO FURTHER NEEDS, CALL LIGHT IN REACH.
--- NOTE | 2020-09-15 00:47 | NUR ---
IV MAINTENANCE PROVIDED BY ARCHERY EQUIPMENT REPAIRER KAREE, FLUIDS HUNG AND INFUSING PER MD ORDERS. SITE WNL. pt AWAKE AND RESTING IN BED, WATCHING TV. DENIES NEEDS AT THIS TIME. pt APPEARS RELAXED AND COMFORTABLE AT THIS TIME. CALL LIGHT IN REACH.
--- NOTE | 2020-09-15 02:13 | NUR ---
ASSESSMENT COMPLETE, VS AND I&O'S COMPLETE AND STABLE. pt AWAKE AND RESTING IN BED, APPEARS RELAXED AND COMFORTABLE AT THIS TIME. pt COMPLIANT WITH CARE, BED ALARM REMAINS ON FOR SAFETY. pt A/O TO ALL BUT DATE, CLAIMS IT'S THURSDAY. REORIENTED TO DATE. CALL LIGHT IN REACH. IV FLUIDS REMAIN INFUSING AT 85MLS/HR, SITE WNL. pt DENIES FURTHER NEEDS, pt REMAINS IN VIEW OF RN STATION.
--- NOTE | 2020-09-15 04:15 | NUR ---
PT CALLED, NEEDED ASST UP TO THE TOILET, SBA WITH IV POLE, PT SEEMS TO BE AWARE OF LOCATION, PT QUESTIONING REASON FOR STAY, HAD RN IN TO HELP EXPLAIN, NO FURTHER NEEDS
--- NOTE | 2020-09-15 04:21 | NUR ---
CALL LIGHT ANSWERED BY POLA KELLER, pt UP TO VOID AND BACK TO BED. INFORMED BY POLA THAT pt IS ASKING ABOUT WHY HE IS AT THE HOSPITAL, EDUCATION PROVIDED ON EVENTS LEADING TO HOSPITALIZATION. pt REPORTS FEELING CONFUSED AND ASKED IF HE HIT HIS HEAD, REORIENTED pt AND INFORMED HIM THAT ALL HEAD IMAGING RETURNED WNL. NO FURTHER NEEDS, CALL LIGHT IN REACH. BED ALARM ON.
--- NOTE | 2020-09-15 05:19 | NUR ---
scheduled thyroid meds given, see emar. vs and i&o's complete and stable. iv fluids remain infusing per md orders, site wnl. pt compliant with care, states, "i just wanna get the hell outta here". discussed poc for remaining shift and that md will begin making rounds after morning meeting. pt verbalized understanding. call light in reach, pt in view of rn station.
--- NOTE | 2020-09-15 07:16 | NUR ---
PT UP TO VOID, SBA WITH IV POLE, PT BACK IN BED
--- NOTE | 2020-09-15 07:24 | EKG ---
[facility] [address] [place], [place] [address] Signed Sinus tachycardia Otherwise normal ECG When compared with ECG of 08-SEP-2020 08:14, QT has shortened Confirmed by AMPARO KIDD MD ([id number]) on 09/15/2020 7:23:56 AM Electronically Signed By: AMPARO KIDD MD 09/15/20 0724 PATIENT NAME: TYRESE PIMENTEL Bel Electrocardiogram DATE OF : 68 PHYSICIAN: AMPARO KIDD MD REPORT #: [id number] REPORT IS CONFIDENTIAL AND NOT TO BE RELEASED WITHOUT AUTHORIZATION
--- NOTE | 2020-09-15 08:16 | NUR ---
PT AWAKE IN BED. ORIENTED TO SELF, DATE AND TIME BUT UNSURE WHY HE IS BACK IN THE HOSPITAL. EXPLAINED THAT HE CAME IN LAST NIGHT D/T PANIC ATTACK AND ALTERED LOC AND IS BEING TREATED ACCORDINGLY. MORNING PO MEDS GIVEN AND LR W/ 20 K INFUSING @ 85 MLS/HR. 2G MAGNESIUM HUNG (MG LEVEL 1.6 THIS AM). PT STATES HE WOULD LIKE TO GO HOME. STILL APPEARS SLIGHTLY CONFUSED TO EVENTS AND SLOW TO RESPOND. FORGETFUL AND NEEDS FREQUENT REORIENTING. VOIDING QUANTITY SUFFICIENT W/ URINAL AT BEDSIDE. CALL LIGHT IN REACH. NOT OTHER NEEDS AT THIS TIME.
--- NOTE | 2020-09-15 08:30 | NUR ---
DR KIDD NOTIFIED OF PT'S INCREASED CONFUSION. PT DISORIENTED TO CURRENT EVENTS. TROUBLE REMEMBER PET'S NAME AT HOME, SLOW TO RESPOND. DOES NOT KNOW WHY HE IS HERE. NEEDS FREQUENT REORIENTING. AMMONIA LEVEL INCREASED FROM 38 TO 46. SODIUM LEVEL 130. NEW ORDERS FOR 20 G LACTULOSE AND TO DC LR IVF.
--- NOTE | 2020-09-15 09:33 | NUR ---
PATIENT IS SITTING UP IN CHAIR WATCHING TV. FRESH WATER GIVEN. VITALS AND I&OS ARE DONE AND DOCUMENTED. CALL LIGHT IS IN REACH. NO FURTHER NEEDS AT THIS TIME.
--- NOTE | 2020-09-15 10:00 | NUR ---
MAGNESIUM INFUSION COMPLETE, PT RFA IV SALINE LOCKED. LACTULOSE SUSPENSION GIVEN. EDUCATED PT ON MECH OF ACTION, INSTRUCTED TO CALL WHEN HE FEELS URGE TO DEFECATE. CALL LIGHT IN REACH. PT SLIGHTLY MORE QUICK TO RESPOND. STILL CONFUSED AT EVENTS. DR. KIDD IN TO SEE PT.
--- NOTE | 2020-09-15 11:59 | NUR ---
in to give pt po librium. Pt back to bed from chair. states he has been up once to void. Pt still has jeans on, offered to remove for pt but he states he prefers to have them on. Sitting up in bed eating lunch. No other complaints. Fatuma remains in room.
--- NOTE | 2020-09-15 14:18 | NUR ---
AFTERNOON ASSESSMENT COMPLETE. PT REMAINS CONFUSED, SLIGHTLY ANXIOUS BUT IS NOT AGGRESSIVE OR COMBATIVE, THOUGH HE STATES HE WOULD LIKE TO GO HOME. UNABLE TO RECALL DATE OR CURRENT EVENTS. ORIENTED TO SELF, , AND PLACE. PT HAS BEEN UP TO VOID TO THE BATHROOM BUT HAS NOT HAD A BM SINCE MOST RECENT LACTULOSE DOSE. SITTING UP IN BED WATCHING TV SHOW. CALL LIGHT IN REACH.
--- NOTE | 2020-09-15 17:30 | NUR ---
PT ASKING WHERE HE IS. ASKING WHERE SAH IS, AND WHY HE'S HERE. DOES NOT RECOGNIZE . SHE REPORTS HE ASKED WHO SHE IS AND DOESN'T RECOGNIZE. PT HAS REMAINED CALM THROUGHOUT CONFUSION THIS AFTERNOON. HE IS DIFFICULT TO REORIENT HE FORGETS W/IN 5 MINUTES OF ANSWERS TO QUESTIONS. DR. KIDD CALLED AND NOTIFIED PT CONFUSION IS NOT IMPROVING, IT IS WORSENING AND ALSO PT HAS NOT HAD BM SINCE MORNING DOSE OF LACTULOSE. NEW ORDERS FOR LACTULOSE 20 GM ONCE NOW AND BMP, AMMONIA LABS TO BE DRAWN TOMORROW MORNING (09/16/20). PT LFA IV REMAINS SALINE LOCKED. ENCOURAGE PO FLUID INTAKE. PT ON BED ALARM D/T CONFUSION, THOUGH HE APPEARS STEADY ON FEET. CALL LIGHT IN REACH.
--- NOTE | 2020-09-15 19:49 | NUR ---
PATIENT SITTING UP IN BED WATCHING TV. PATIENT'S AFFECT IS VERY FLAT AND HE IS VERBALLY SLOW TO RESOND. PATIENT'S BED ALARM IS ON AND CALL LIGHT IS IN REACH. PATIENT DOES NOT HAVE ANY CARE NEEDS AT THIS TIME.
--- NOTE | 2020-09-15 20:35 | NUR ---
PATIENT SITTING IN BED CALMLY WITH A VERY FLAT AFFECT. PATIENT CANNOT TELL ME HIS NAME, DATE, PRESIDENT, 'S NAME, OR WHERE HE IS. PATIENT IS COOPERATIVE THOUGH AND TOOK HIS MEDICATIONS WITHOUT DIFFICULY. PATIENT DRANK SOME WATER I REQUESTED, AND THE BATHROOM WAS OFFERED AND THE PATIENT SHOOK HIS HEAD NO. CMS INTACT AND VS STABLE. BED ALARM ON FOR SAFETY AND CALL LIGHT IN REACH. PATIENT CAN BE SEEN FROM THE NURSES STATION.
--- NOTE | 2020-09-15 22:40 | NUR ---
PATIENT CONTINUES TO JUST SIT IN BED AND PLAY WITH HIS ADMIT BRACELET AND THE TOP OF HIS BLANKET. BED ALARM REMAINS ON, CALL LIGHT IN REACH, AND PATIENT CAN BE SEEN FROM THE NURSES STATION.
--- NOTE | 2020-09-15 23:02 | NUR ---
TALKED WITH PATIENT HAS NOT VOIDED WITH IN MY DOCUMENTATION PARAMETERS TO WHAT SHE WOULD LIKE ME TO DO FOR THE NIGHT IF THE PATIENT DID NOT VOID. INFORMED ME SHE WAS NOT WORRIED ABOUT HIS RENAL FUNTION AND I DID NOT HAVE TO CALL HER ON THIS SHIFT IF STANDARD PARAMETERS WERE NOT MET.
--- NOTE | 2020-09-15 23:55 | NUR ---
PATIENT'S BED ALARM WENT OFF. KUMAR HENRY AND THIS RN ENTERED THE ROOM AND PATIENT WAS STANDING BY THE SINK. I ASKED THE PATIENT IF HE WAS OK AND THE PATIENT GOT REALLY BIG EYES, STARTED SHKING HIS HANDS IN THE AIR AND MAKING A, "WHOOOP" SOUND. I KEPT TRY TO TALK TO THE PATIENT, AND HE DID NOT RESPOND AND WENT INTO THE BATHROOM AND VOIDED. AFTER VOIDING PATIENT CAME OUT OF HIS ROOM AND FLASHED THE VICE PRESIDENT OF RECRUITING KRISHNA. PATIENT THEN WENT DOWN THE PERSON TOWARD CCU AND THIS RN WALKED BESIDE HIM TRYING TO REDIRECT HIM TO HIS ROOM. SECURITY HAD BEEN CALLED, PATIENT STARTED WALKING BACK TOWARD THE FRONT MED/SURG NURSES STATION THIS RN CONTINUED TO WALK BESIDE HIM AND CAME OUT OF CCU AND ASKED THE PATIENT IF HE WOULD LIKE SOME MELATONIN TO SLEEP AND HE AGREED. PATIENT WALKED BACK TOWARD HIS ROOM, BUT DID NOT GO IN AND HEADED TOWARDS THE HALLWAY LEADING TO THE FRONT ENTRANCE. THIS RN, FRAN RT, AND OTHER STAFF WERE STANDING AROUND HIM AND SECURITY ARRIVED AND HE HEADED BACK INTO HIS ROOM AND GOT IN BED. BED ALARM BACK ON.
--- NOTE | 2020-09-15 23:55 | NUR ---
PT OUT OF RM, TRYING TO WALK THE HALLWAY, SECURITY NOTIFIED THIS REFRIGERATION SYSTEMS INSTALLER AND PRIMARY RN ASST PT BACK TO RM
--- NOTE | 2020-09-15 23:55 | NUR ---
PT STARTED WANDERING DOWN THE PERSON AFTER USING THE RESTROOM. WE FOLLOWED PT TRYING TO GET HIM BACK INTO HIS ROOM DR KIDD SAW HIM AND ORDERED MELATONIN. VORBC 6MG MELATONIN, ORDER ENTERED.
--- NOTE | 2020-09-16 00:13 | NUR ---
BROUGHT PTIENT THE MELATONIN THAT WAS ORDERED AND THE PATIENT TOOK IT WITHOUT DIFFICULTY. I ASKED THE PATIENT IF HE WAS OK AND HE SAID,"YEP", ASKED IF HE NEEDED ANYTHING ELSE AND HE SAID,"NOPE". BED ALARM STILL ON AND CALL LIGHT IS IN REACH.
--- NOTE | 2020-09-16 01:21 | NUR ---
PATIENT REMAINS IN BED IN SEMI-FOWLERS POSITION, EYES ARE CLOSED, RESPIRATIONS REGULAR AND EVEN, BED ALARM ON AND CALL LIGHT IS IN REACH.
--- NOTE | 2020-09-16 03:24 | NUR ---
PATIENT CONTINUES TO REST IN SEMI-FOWLERS POSITION, EYES CLOSED, RESPIRATIONS REGULAR AND EVEN, CALL LIGHT IN REACH, AND BED ALARM ON.
--- NOTE | 2020-09-16 05:30 | NUR ---
PATIENT CONTINUES TO REST QUIETLY IN SEMI-FOWLERS POSITION IN BED, EYES CLOSED, RESP[IRATIONS REGULAR AND EVEN, CALL LIGHT IN REACH, BED ALARM ON.
--- NOTE | 2020-09-16 06:20 | NUR ---
IN WITH RN TO GET VITAL, NO FURTHER NEEDS AT THIS TIME
--- NOTE | 2020-09-16 06:50 | NUR ---
PATIENT HAS RESTED MOST OF THE NIGHT IN BED IN A SEMI-FOWLERS POSITION. PATIENT GOT UP ONCE THIS SHIFT AND WALKED TO THE BATHROOM AND HAD A VERY LARGE VOID, MADE SOME PECULIAR GESTURES IN HIS ROOM AND PROCEDED TO WALK AROUND THE M/S FLOOR AND OWULD NOT FOLLOW DIRECTION AND SECURITY WAS CALLED. PATIENT TRIED TO OPEN THE CCU DOORS, BUT THEY WERE LOCKED. CAME FROM CCU AND INTERACTED WITH THE PATIENT AND ORDERED THE PATIENT SOME MELATONIN FOR SLEEP. PATIENT DID SLEEP AFTER THE MELATONIN AND AWOKE WITH THE MORNING ASSESSMENT AND VS. PATIENT COULD TELL ME HIS FIRST NAME AND THAT IS ALL. PATIENT ALSO REFUSED ALL HIS AM MEDS. BED ALARM REMAINS ON PATIENT IS UNPREDICTABLE. CALL LIGHT IS IN REACH AND PATIENT CAN BE SEEN FROM THE NURSES STATION.
--- NOTE | 2020-09-16 07:41 | NUR ---
Patient resting in bed, respirations even and non labored. Patient has no notable distress. Bed alarm intact. Close to RN station.
--- NOTE | 2020-09-16 09:26 | NUR ---
Patient sitting up in bed, alert to self and place. Patient refused am medications with the RN. Patient will not tell me why he is refusing his medication. Patient has minimal verbal interactions with staff and looks down at his hands while I speak to him. Bed alarm in place. Told patient his called to check in on him. Breakfast at bedside; pt reports he will not eat at this time. Close to RN station for monitoring.
--- NOTE | 2020-09-16 10:36 | NUR ---
PT REFUSING ALL MEDICATIOSN AND ASSESSMENT. DR TO BEDSIDE TO TRY AND ENCOURAGE PT TO TAKE MEDICAITONS. ALDO CALLED. PT STATES HE JUST WANTS TO LEAVE AND HAVE A BEER AND WISKY. REPROTS SHE IS ON HER WAY TO TALK TO HIM.
--- NOTE | 2020-09-16 11:18 | NUR ---
Attempted to administer morning medications with at bedside. Patient continues to decline medications.
--- NOTE | 2020-09-16 11:18 | NUR ---
Patient reports suicidal ideations. Patient placed his pointer finger to head and stated "shoot myself". This RN did a suicidal scoring assessment at this time. Patient asked series of questions regarding self harm. Patient reports he wants to "shoot himself" and points his finger as his head. When I asked him how he plans to cause self harm he responds verbally with "a gun". Patient also states "you can take me out and shoot me". This RN instructed patient that I was his nurse and I will be ensuring his safety during this shift. [facility] evaluation in place. Dr. Ordonez aware. Patient with and close to RN station for frequent monitoring. Patient will be a 1:1 for safety at this time.
--- NOTE | 2020-09-16 11:30 | NUR ---
PT SITTING IN BED WITH . ROOM STRIPPED, [facility] CALLED. PT IS 1:1. CHANGED CLOTHS TO PAPER SCRUBS.
--- NOTE | 2020-09-16 12:00 | NUR ---
PT SITTING SILENTLY IN BED. REFUSES LUNCH AND WATER. REMAINS 1:1 WITH FLAT SCREEN WORKER AT BEDSIDE.
--- NOTE | 2020-09-16 13:00 | NUR ---
[facility] FOR SUICIDE ASSESSMENT. PATIENT IS AT BEDSIDE ALONG WITH MYSELF. PREVIOIULY PT HAD INDICATED WITH QUESTIONS HE WAS SUICIDAL AND NOW WITH [facility] PRESENT THE PATIENT IS REFUSING TO ANSWER QUESTIONS. REPORTS SHE FEELS HE DOES NOT KNOW HER AND IS CONFUSED. DR KIDD CAMEE TO BEDSIDE TO TALK WITH SHEKHAR. DR KIDD INDICATES LABS DO NOT INDICATE CAUSE FOR ALTERED LOC. PATIENT CHOOSES WHEN TO ANSWER QUESTIONS AND WHEN TO STAY SILENT AND NOT MAKE EYE CONTACT. SHEKHAR REPORTS SHE IS UNABLE TO ASSESS HIM AT THIS TIME AND HE SHOULD REMAIN UNDER SUICIDE WATCH UNTIL DISCHARGE PAPERS ARE COMPLETED AND SHE CAN THEN EVALUATE THE PATIENT.
--- NOTE | 2020-09-16 13:12 | NUR ---
Charge nurse (frederick), patient's and [facility] reporesentative with patient.
--- NOTE | 2020-09-16 14:57 | NUR ---
left to go home. Patient remains a 1:1 for safety monitoring.
--- NOTE | 2020-09-16 16:20 | NUR ---
In to assess patient. Patient in bed, resting with hands in his lap. When I ask patient what he needed he responded "give me a thirty pack and a fifth of wiskey". Water provided to patient; pt declined.
--- NOTE | 2020-09-16 16:20 | NUR ---
PATIENT MADE INAPPROPRIATE SEXUAL GESTURES AT THIS PREFABRICATOR. THIS PREFABRICATOR THEN REQUESTED TO BE REMOVED FROM THE ROOM.
--- NOTE | 2020-09-16 17:06 | NUR ---
Patient reports he needs to urinate. Patient stood at edge of bed then put down the urinal and proceeded to walk around in the room. Patient walked back to bed without voiding. Patient remains a 1:1 and close to RN station. Dr. Ordonez aware patient had not yet voided. Will continue to monitor.
--- NOTE | 2020-09-16 17:36 | NUR ---
PATIENT IN BED WATCHING TV. PATIENT ALLOWED VITALS BUT STILL REFUSES TO EAT OR DRINK ANYTHING. NO VOID. PATIENT DENIES NEEDING TO VOID AND TRYING, RN AWARE. SITTER IN ROOM. NO FURTHER NEEDS AT THIS TIME.
--- NOTE | 2020-09-16 18:08 | NUR ---
Patient alert to self and place. Patient denies thoughts of self harm at this time. Patient declined dinner. Water within reach. Patient close to RN station.
--- NOTE | 2020-09-16 19:34 | NUR ---
PATIENT SITTING IN BED WATCHING TV AND REMAINS ON 1:1 SUICIDE WATCH. POLA CLEARY IS AT THE BEDSIDE. PATIENT CAN BE SEEN FROM THE NURSES STATION DESK.
--- NOTE | 2020-09-16 19:52 | NUR ---
PATIENT SHAKES HIS HEAD NO WHEN ASKED IF HE IS STILL FEELING ABOUT HURTING HIMSELF. PATIENT REFUSED TO LET ME DO AN ASSESSMENT. PATIENT REFUSED ALL EVENING MEDS. PATIENT REFUSED VITAL SIGNS. PATIENT HAS WATER AT BEDSIDE. PATIENT REMAINS ON 1:1 SUICIDE WATCH WITH POLA CLEARY, OBSERVING PATIENT.
--- NOTE | 2020-09-16 20:34 | NUR ---
THIS PAPER MACHINE BACKTENDER IN TO TAKE OVER OBSERVATION
--- NOTE | 2020-09-16 20:56 | NUR ---
PT ASKING ABOUT GETTING CLOTHES, ENCOURGING PT THAT HE IS HERE TO GET BETTER
--- NOTE | 2020-09-16 22:12 | NUR ---
PT UP TO TOILET, IN DIRECT OBSERVATION
--- NOTE | 2020-09-16 23:05 | NUR ---
MD TO FLOOR, UPDATED THAT pt CONTINUES TO REFUSE ALL MEDICAL INTERVENTIONS, MEDICATIONS, VS. NO NEW ORDERS FROM MD. pt REMAINS 1:1 CLOSE MONITORING WITH SCALE SHOOTER KRISHNA.
--- NOTE | 2020-09-16 23:43 | NUR ---
PT SITTING UP, IN TO CHECK ON PT, PT C\O OF BACK PAIN, RN IN TO CHECK ON PT
--- NOTE | 2020-09-16 23:46 | NUR ---
PATIENT INFORMED THE POLA KELLER THAT HE WAS HAVING SOME DISCOMFORT IN HIS BACK. OFFERED PATIENT HIS SLEEP MEDICATION, HIS PAMELOR, AND ENULOSE AGAIN AND PATIENT REFUSED. ASKED PATIENT IF HE WANTED AN ICE OR WARM PACK AND PATIENT SAID,"NO". PATIENT REMAINS ON 1:1 SUICIDE WATCH. CALL LIGHT IN REACH, BED ALARM ON, KRISHNA ESCALONA IN CONTINUOUS VISUAL CONTACT.
--- NOTE | 2020-09-16 23:56 | NUR ---
PT UP TO BLOW NOSE AND STRETCH BACK, PT BACK TO BED, ALARM SET, PT STATES NO FURTHER NEEDS
--- NOTE | 2020-09-17 00:35 | NUR ---
THIS RN NOTICED THE PATIENT WAS SITTING UP IN BED AND WENT TO ASK IF I COULD HELP HIM WITH ANYTHING. PATIENT SAID,"I WANT MY CLOTHES, I'LL FUCKIN' WALK HOME." TOLD THE PATIENT THAT HE WAS GOING TO BE RE-EVEALUATED IN THE MORNING TO BE DISCHARGED. PATIENT SAID,"WELL GET THAT BITCH IN HERE, I SAW HE R WALK BY." I ASKED WHO HE WAS REFERING TO AND HE SAID,"THE DOCTOR". INFORMED THE PATIENT JULIET THE MD WAS SEEING OTHER PATIENT'S RIGHT NOW AND ASKED THAT HE TRY TO RELAX AND GET SOME REST IT IS THE MIDDLE OF THE NIGHT. PATIENT SAID,"I WAS JUST KIDDIN' YA". PATIENT LAID BACK DOWN IN BED. PATIENT REMAINS ON 1:1 OBSERVATION.
--- NOTE | 2020-09-17 02:39 | NUR ---
PATIENT REMAINS ON 1:1 SUICIDE WATCH WITH POLA KELLER ON WATCH. PATIENT RESTING QUIETLY SUPINE, RESPIRATIONS REGULAR AND EVEN, EYES CLOSED, CALL LIGHT IN REACH, BED ALARM ON.
--- NOTE | 2020-09-17 05:44 | NUR ---
LAB IN TO DRAW LABS
--- NOTE | 2020-09-17 05:54 | NUR ---
PATIENT WAS NOT COOPERATIVE AND REFUSED ALL CARE UNTIL LAB CAME IN THIS AM. LABS WERE DRAWN, VS WERE DONE WHICH WERE STABLE, AM MEDS GIVEN AND THE PM DOSE OF LACTULOSE THAT THE PATIENT REFUSED. PATIENT STILL REFUSED AN ASSESSMENT. PATIENT WAS NOT VERBAL AT ALL TO THIS RN EXCEPT FOR SAYING NO OCCASIONALLY DURING THE SHIFT, THE REST OF THE TIME HE COMMUNICATED WITH THIS RN BY HAND GESTURES OR SHAKING HIS HEAD NO. PATIENT REMAINS ON 1:1 SUICIDE WATCH EVEN THOUGH HIS ONLY SHOOK HI HEAD THIS SHIFT WHEN ASKED IF HE WAS HAVING THOUGHTS OF SELF HARM. POLA KELLER, CONTINUES PATIENT'S 1:1 MONITORING. CALL LIGHT IS IN REACH.
--- NOTE | 2020-09-17 06:20 | NUR ---
PT SETTING HEAD ON TABLE, ASKING PT TO SIT UPRIGHT, PT SMACKING FISH ON ARMREST, HAD RN COME IN ROOM FOR ASSISTANCE TALKING PT DOWN, PT COOP WITH ANXIETY MED, MOVED CHAIR TO FACE WINDOW, PT WATCHING CARS ON THE ROAD, LOOKING FOR ,
--- NOTE | 2020-09-17 06:27 | NUR ---
POLA KELLER, APPROACHED THIS RN SAYING THE PATIENT WAS ACTING VERY ANXIOUS. WENT IN AND TALKED WITH THE PATIENT AND ASKED HIM TO PLEASE BE PATIENT [facility] AND THE DOCTOR WOULD BE IN TO SEE HIM THIS MORNING. PATIENT STARTED BANGING HIS FIST ON THE CHAIR. I ASKED HIM IF I NEEDED TO HAVE SECURITY COME DOWN. HE GOT REALLY BIG EYES AND STARTED MAKING HAND MOTIONS. I SAID I DIDN'T UNDERSTAND AND I NEEDED TO HAVE HIM TRY AND SPEAK TO ME USING WORDS. PATIENT WAS VERY ANXIOUS. I ASKED IF HE WOULD LIKE TO TAKE HIS LIBRIUM FOR ANXIETY AND HE MADE THE MOTION OF A A MEDICINE CUP TO HIS MOUTH SO PATIENT DID TAKE A LIBRIUM AND WE ANGLED THE BEDSIDE ARM CHAIR TO LOOK OUT THE WINDOW FOR HIM HE WAS MOTINING US TO DO THAT FOR HIM, BUT REFUSED TO SPEAK. POLA KELLER REMAINS 1:1 WITH PATIENT.
--- NOTE | 2020-09-17 06:40 | NUR ---
BREAKFAST ORDERED ON STYROFOAM TRAY, PER PTs PREFERANCE, PT UP TO THE TOILET
--- NOTE | 2020-09-17 07:28 | NUR ---
REPORT RECIEVED FROM [facility]. THIS NURSE TO BEDSIDE FOR ONE ON ONE. PT SITTING UP IN CHAIR. PT AT FIRST WAS NOT SPEAKING AND ONLY MOTIONING WITH HANDS AND POINTING AT THINGS.
--- NOTE | 2020-09-17 08:03 | NUR ---
PT SITTING UP IN CHAIR. EATING BREAKFAST. REPORTS BACK PAIN 10/10 AND IS REQUESTING PAIN MEDICATIONS. TYLENOL ADMISNTERED.
--- NOTE | 2020-09-17 08:04 | NUR ---
PT FINALLY SPOKE STATING, "OH GOD, I JUST WANTED TO GET OUT OF HERE". I ASKED IF HE MENT HE WAS ACTING WHEN HE WASN'T SPEAKING AND HE STATED YES. PT THEN WAS ABLE TO CORRECTLY SAY THE YEAR AND MONTH, THAT HE WAS TO [facility] AND HE LIVES IN [facility]. PT ALSO STATED THET IN ORDER TO LEAVE WE NEEDED HIM TO "POOP". THIS WAS EDUCATED YESTERDAY WHEN TALKING ABOUT AMMONIA LEVELS IN BLOOD AND LACTULOSE EDUCATION.
--- NOTE | 2020-09-17 08:10 | NUR ---
PT ATE 100% OF BREAKFAST. TOOK TYLENOL AND THIAMIN. PT REFUSESD LACTULOSE STATING HE JUST TOOK A DOSE AT 0500.
--- NOTE | 2020-09-17 08:32 | NUR ---
ASSESSMENT COMPLETED. PT COMPLETLY COOPERATIVE. ABLE TO ANSWER ALL ORIENTATION QUESTIONS CORRECTLY. LUNGS CLEAR AND DIM IN BASES. PT IS TACHYCARDIC. BOWEL TONES ACTIVE. VITALS TAKEN. PT ANSWERING ALL QUESTIONS WITH WORDS, AND MAKING SENSE. PT STATES, "I AM COLD." WHEN ASKED IF HE WANTED A WARM BLANKET PT STATES, "YEAH".
--- NOTE | 2020-09-17 08:45 | NUR ---
DR KIDD TO BEDSIDE TO EVALUATE PT. PT COOPERATIVE WITH DR'S ASSESSMENT AND ANSWERS QUESTIONS ASKED BY AND ALL ANSWERS ARE APPROPRIATE.
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
--- NOTE | 2020-09-17 09:00 | NUR ---
CALL MADE TO [facility] PER DR REQUEST. PT TALKED TO ON PHONE THEN HANDED PHONE OVER TO NURSE. STATES THE PATIENT IS NOT THE SAME HE USE TO BE. I INFORMED HER HE WAS ORIENTED TO HIS LIFE, DATE AND SELF. I TOLD HER HE WAS ANSWERING ALL QUESTIONS APPROPRIETLY AND BEING COOPERATIVE WITH CARES. SAID SHE WAS DOING LAUNDRY AND WOULD LIKE ME TO CALL HER WHEN [facility] COMES TO [place] PT. I TOLD HER I WOULD.
[2020-09-17] MEDS ORDERED: CHLORDIAZEPOXID25 MG PO (09:17)
--- NOTE | 2020-09-17 09:19 | NUR ---
DAUGHTER CALLED TO ROOM TO TALK TO PT. PT EMOTIONAL ON PHONE WITH TEARS WELLING UP IN EYES. PT HANGS HPONE UP EXCITEDLY AND SAYS," SHES COMING TO SEE ME!" WITH SMILE ON HIS FACE HE WIPES HIS TEARS AWAY.
--- NOTE | 2020-09-17 10:55 | NUR ---
[employer] CALLED AND REPROTS THEY WILL BE HERE AT 1200 FOR ASSESSMENT. CALLED AND UPDATED ON PLACE. SAYS SHE WILL BE HERE FOR ASSESSMENT.
--- NOTE | 2020-09-17 10:55 | NUR ---
PT SITTING UP WATCHING TV. LUNCH ORDERED. DENIES FURTHER NEEDS. REMAINS 1:1.
--- NOTE | 2020-09-17 10:57 | NUR ---
PT OFFERED SHOWER. PT REFUSED STATING HE WILL SHOWER WHEN HE GOES HOME.
--- NOTE | 2020-09-17 12:14 | NUR ---
[facility] IN ROOM
--- NOTE | 2020-09-17 12:32 | NUR ---
PT ARRIVED FROM PACU. PT STATES HE FEELS HE NEEDS TO URINATE, ASSISTED TO BATHROOM.
--- NOTE | 2020-09-17 13:00 | NUR ---
Spoke with Levi and Katharine. Pt will follow up with [employer] next week and now has agreed to Peer to Peer Support from [place]. Will dc home with today.
[2020-09-17] MEDS ORDERED: LACTULOSE20 GM/30 M PO (13:32)
--- NOTE | 2020-09-17 13:40 | NUR ---
PT REPORTING 8/10 BACK PAIN. TYLENOL ADMISNTERED. Spontaneously REMOVED PT FROM ONE ON ONE STATUS AND DETERMINED PT IS NOT SUICIDAL.
--- NOTE | 2020-09-17 15:01 | NUR ---
DISCHARGE INSTRUCTIONS GIVEN TO PT AND DAUGHTER.
== END 2020-09-17 14:55 | disposition home or self-care (01) ==
LOC: ED 19:41 → MS 19:43
PROVIDERS: ADMIT Internal Medicine; ATTEND Internal Medicine
DX: G93.41 Metabolic encephalopathy (principal); F41.0 Panic disorder [episodic paroxysmal anxiety]; E87.1 Hypo-osmolality and hyponatremia; F10.231 Alcohol dependence with withdrawal delirium; R04.0 Epistaxis; G89.4 Chronic pain syndrome; I10 Essential (primary) hypertension; E89.0 Postprocedural hypothyroidism; F17.200 Nicotine dependence, unspecified, uncomplicated
CPT/HCPCS: 36415; 70450; 71045; 80048; 80053; 81001; 82140; 83735; 84484; 85025; 93005; 93010; 96374; 99285-25; J1956; J2060; J3475; J3480; J7120

== ENCOUNTER 2021-09-10 21:30 | Emergency (ER) | payer OTHER ==
[~2021-09-10] VITALS: Ht 182.9 cm; Wt 70.3 kg
[~2021-09-10 21:30] MED LIST changes: +CHLORDIAZEPOXID25 MG PO; +LACTULOSE20 GM/30 M PO
[2021-09-10] MEDS ORDERED: TOPROL XL50 MG PO (21:55)
[2021-09-10] MEDS ORDERED: ACETAMINOPHEN500 M1 PO (21:59)
== END 2021-09-11 00:15 | disposition home or self-care (01) ==
LOC: ED 21:30
DX: R04.0 Epistaxis (principal); R56.9 Unspecified convulsions; Z79.02 Long term (current) use of antithrombotics/antiplatelets; I10 Essential (primary) hypertension; Z87.891 Personal history of nicotine dependence; Z79.899 Other long term (current) drug therapy
CPT/HCPCS: 30901; 36415; 80053; 85025; 99284-25; J2060; J7030